=== PATIENT | male | born 1970 | race Caucasian/White ===

== ENCOUNTER → 2017-06-02 | Outpatient (CLI) | payer OTHER ==
[2017-06-02 18:01] LABS: ALT 31 U/L (21-72); AST 18 U/L (17-59); Alkaline Phosphatase 70 U/L (38-126); Anion Gap 10 mmol/L; Blood Urea Nitrogen 10 mg/dL (9-20); Carbon Dioxide 27 mmol/L (22-30); Chloride 102 mmol/L (98-107); Cholesterol 212 mg/dL (<200); Glucose 91 mg/dL (74-99); HDL Cholesterol 62 mg/dL (40-60); Non-African American GFR(MDRD) >60 (>60 ml/min/1.73 sqM); Potassium 4.1 mmol/L (3.5-5.1); Sodium 139 mmol/L (137-145); Total Bilirubin 0.4 mg/dL (0.2-1.3); Total Protein 6.8 g/dL (6.3-8.2)
[2017-06-02 18:24] LABS: Anisocytosis Slight; Basophils % (A) 1 %; CHCM 28.8; Eosinophils # (A) 0.2 k/uL (0-0.7); Eosinophils % (A) 4 %; HCT 36.6 % (39.0-53.0); HDW 2.93; HGB 10.2 gm/dL (13.0-17.5); Hypochromasia Marked; Luc # (Auto) 0.12; Luc % (Auto) 3; Lymphocytes # (A) 1.2 k/uL (1.0-4.8); Lymphocytes % (A) 26 %; MCH 21.4 pg (25.0-35.0); MCHC 27.9 g/dL (31.0-37.0); MCV 76.8 fL (80.0-100.0); Microcytosis Slight; Monocytes # (A) 0.4 k/uL (0-1.0); Monocytes % (A) 9 %; Neutrophils # (A) 2.7 k/uL (1.3-7.7); Neutrophils % (A) 58 %; RBC 4.77 m/uL (4.30-5.90); RDW 16.3 % (11.5-15.5); WBC 4.7 k/uL (3.8-10.6); WBC (Perox) 4.61
== END | disposition home or self-care (01) ==
LOC: LABWHC1 17:20
PROVIDERS: ATTEND Family Medicine
DX: Z00.00 Encounter for general adult medical examination without abnormal findings (principal)
CPT/HCPCS: 36415; 80053; 80061; 84443; 85025

== ENCOUNTER 2017-09-05 21:29 | Emergency (ER) | payer OTHER ==
--- NOTE | 2017-09-05 22:03 | XR ---
EXAMINATION TYPE: XR hand complete LT DATE OF EXAM: 09/05/2017 CLINICAL HISTORY: Laceration injury with pain TECHNIQUE: Frontal, lateral and oblique images of the left hand are obtained. COMPARISON: None. FINDINGS: There is no acute fracture/dislocation evident in the left hand. There is prominent osteop hyte from the third metacarpal head. There is mild spurring and joint space loss throughout the third finger. There is mild spurring first metacarpal phalangeal joint. The overlying soft tissue appears unremarkable. IMPRESSION: There is no acute fracture or dislocation in the left hand.
--- NOTE | 2017-09-05 22:05 | ED ---
Wound/Laceration HPI - General Chief Complaint: Wound/Laceration Stated Complaint: Hand Laceration Time Seen by Provider: 09/05/17 21:33 Source: patient, RN notes reviewed Mode of arrival: ambulatory Limitations: no limitations - History of Present Illness Initial Comments: This is a 47-year-old male who presents to the emergency department with chief complaint of left hand laceration. Patient states that approximately one hour prior to arrival he was using a metal scraper against adhesive. He slipped and lacerated the thenar eminence of his left hand. Patient was unable to get the bleeding under control. He states he is up-to-date with his tetanus vaccination. Denies any other injuries. Denies fever, chills, chest pain, shortness of breath, abdominal pain, nausea or vomiting, constipation or diarrhea, dysuria or hematuria, numbness or tingling, headache or vision changes. - Related Data Previous Rx's Medication Instructions Recorded Cephalexin [Keflex] 500 mg PO Q12HR #20 cap 09/05/17 Allergies Allergy/AdvReac Type Severity Reaction Status Date / Time No Known Allergies Allergy Verified 09/05/17 21:33 Review of Systems ROS Statement: Those systems with pertinent positive or pertinent negative responses have been documented in the HPI. ROS Other: All systems not noted in ROS Statement are negative. Past Medical History Past Medical History: No Reported History History of Any Multi-Drug Resistant Organisms: None Reported Past Surgical History: No Surgical Hx Reported Past Psychological History: No Psychological Hx Reported Smoking Status: Never smoker Past Alcohol Use History: Occasional Past Drug Use History: None Reported General Exam - General Exam Comments Initial Comments: General: Awake and alert, well-developed; in no apparent distress. HEENT: Head atraumatic, normocephalic. Pupils are equal, round and reactive to light. Extraocular movements intact. Oropharynx moist without erythema or exudate. Neck: Supple. Normal ROM. Cardiovascular: Regular rate and rhythm. No murmurs, rubs or gallops. Chest symmetrical. Respiratory: Lungs clear to auscultation bilaterally. No wheezes, rales or rhonchi. Normal respiratory effort with no use of accessory muscles. Musculoskeletal: Normal ROM of left hand. Sensation is intact. Radial pulses are 2+ equal and palpable bilaterally. There is approximately 3 cm linear laceration at left thenar eminence. Bleeding is active. Skin: [place], warm and dry without rashes or lesions. Neurological: Alert and oriented x3. CN II-XII grossly intact. Speech is fluent and answers are appropriate. No focal neuro deficits. Psychiatric: Normal mood and affect. No overt signs of depression or anxiety noted. Limitations: no limitations Course Vital Signs 09/05/17 21:30 Temperature 98.2 F Pulse Rate 89 Respiratory 18 Rate Blood Pressure 132/84 O2 Sat by Pulse 97 Oximetry Procedures - Laceration Laceration #1 Consent Obtained: verbal consent Indication: laceration Site: hand (left thenar eminence ) Size (cm): 3 Description: linear Depth: simple, single layer Anesthetic Used: lidocaine 1% Anesthesia Technique: local infiltration Amount (mls): 6 Pre-repair: wound explored, irrigated extensively, deep structures intact Type of Sutures: nylon Size of Sutures: 5-0 Number of Sutures: 5 Technique: simple, interrupted Patient Tolerated Procedure: well, no complications Medical Decision Making - Medical Decision Making This is a 47-year-old male who presents to the emergency department for evaluation of left hand laceration. X-ray revealed no bone involvement. 5 sutures were placed and patient tolerated well without complication. He states he is up-to-date with his tetanus vaccination. Patient will be discharged home with a prescription for Keflex. Recommended removal of sutures in 10-14 days. He is in agreement with plan and voices understanding. All questions were answered. - Radiology Data Radiology results: report reviewed Left hand x-ray impression: There is no acute fracture or dislocation left hand. Disposition Clinical Impression: Laceration of left hand Disposition: HOME SELF-CARE Condition: Good Instructions: Laceration (ED) Additional Instructions: Please have sutures removed in 10-14 days. Please keep dry for the next 24-48 hours. To clean, use only mild soap and water. Please take medications as prescribed. Please follow up with primary care provider within 1-2 days. Return to emergency department if symptoms should worsen or any concerns arise. Prescriptions: Cephalexin [Keflex] 500 mg PO Q12HR #20 cap Referrals: Dre Lester MD [Primary Care Provider] - 1-2 days Time of Disposition: 22:16
[2017-09-05 22:35] VITALS: BP 142/80; PULSE 72; RESP 16; TEMP 97.4
== END 2017-09-05 22:35 | disposition home or self-care (01) ==
LOC: EC 21:29
DX: S61.412A Laceration without foreign body of left hand, initial encounter (principal); W26.8XXA Contact with other sharp object(s), not elsewhere classified, initial encounter; Y93.89 Activity, other specified
CPT/HCPCS: 12002; 99283

== ENCOUNTER → 2022-12-08 | Outpatient (CLI) | payer OTHER ==
[2022-12-08 14:47] LABS: Partial Thromboplastin Time 24.7 sec (22.0-30.0); Prothrombin Time 10.2 sec (9.0-12.0)
[2022-12-08 20:34] LABS: Basophils # (A) 0.06 X 10*3/uL (0.00-0.10); Basophils % (A) 0.8 %; Eosinophils # (A) 0.25 X 10*3/uL (0.04-0.35); Eosinophils % (A) 3.4 %; HCT 44.1 % (39.6-50.0); HGB 13.9 g/dL (13.0-17.0); Immature Grans, Automated 0.4 %; Lymphocytes # (A) 1.51 X 10*3/uL (0.90-5.00); Lymphocytes % (A) 20.6 %; MCHC 31.5 g/dL (32.0-37.0); MCV 88.9 fL (80.0-97.0); Monocytes # (A) 0.55 X 10*3/uL (0.20-1.00); Monocytes % (A) 7.5 %; NRBC Per 100 WBC 0 /100 WBCS (0.0-0.0); Neutrophils # (A) 4.94 X 10*3/uL (1.80-7.70); Neutrophils % (A) 67.3 %; Platelet Count 226 X 10*3/uL (140-440); RBC 4.96 X 10*6/uL (4.40-5.60); RDW 15.5 % (11.5-14.5); WBC 7.34 X 10*3/uL (4.50-10.00)
[2022-12-08 22:18] LABS: Appearance,Urine Clear (Clear); Bilirubin,Urine Negative (Negative); Blood,Urine Negative (Negative); Color,Urine Yellow (Yellow); Ketones,Urine Negative (Negative); Nitrite,Urine Negative (Negative); PH, Urine 5.5 (5.0-8.0); Specific Gravity,Urine 1.006 (1.001-1.030); Urobilinogen,Urine 0.2 (0.2,1.0)
[2022-12-08 22:30] LABS: African American GFR (CKD) 116.1 (60.0-200.0); Albumin 4.5 g/dL (3.8-4.9); Albumin/Globulin Ratio 1.62 (1.60-3.17); BUN/Creat Ratio 12.51 Ratio (12.00-20.00); Calcium 7.3 mg/dL (8.7-10.3); Carbon Dioxide 25.9 mmol/L (20.0-27.5); Globulin 2.8 g/dL (1.6-3.3); Non-African American GFR(CKD) 100.2 (60.0-200.0); Potassium 4.2 mmol/L (3.5-5.5); Total Bilirubin 0.3 mg/dL (0.30-1.20); Total Protein 7.3 g/dL (6.2-8.2)
== END | disposition home or self-care (01) ==
LOC: LABPAT 12:48
PROVIDERS: ATTEND Orthopaedic Surgery
DX: Z01.818 Encounter for other preprocedural examination (principal); I45.19 Other right bundle-branch block; M16.11 Unilateral primary osteoarthritis, right hip; R94.31 Abnormal electrocardiogram [ECG] [EKG]
CPT/HCPCS: 80053; 81003; 85025; 85610; 85730; 87070; 93005

== ENCOUNTER → 2023-01-19 | Outpatient (CLI) | payer OTHER ==
[2023-01-19 14:37] LABS: Partial Thromboplastin Time 24.2 sec (22.0-30.0); Prothrombin Time 10.6 sec (9.0-12.0)
[2023-01-19 23:06] LABS: ALT 25 U/L (10-49); AST 22 U/L (14-35); Albumin 4.4 d/dL (3.8-4.9); Albumin/Globulin Ratio 1.69 Ratio (1.60-3.17); Alkaline Phosphatase 90 U/L (41-126); BUN/Creat Ratio 15.38 Ratio (12.00-20.00); Blood Urea Nitrogen 12.3 mg/dL (9.0-27.0); Calcium 7.5 mg/dL (8.7-10.3); Chloride 100 mmol/L (96-109); Globulin 2.6 d/dL (1.6-3.3); Glucose 112 mg/dL (70-110); Potassium 4.9 mmol/L (3.5-5.5); Sodium 138 mmol/L (135-145); Total Bilirubin 0.3 mg/dL (0.3-1.2)
[2023-01-20 02:01] LABS: Appearance,Urine Clear (Clear); Bilirubin,Urine Negative (Negative); Blood,Urine Negative (Negative); Color,Urine Yellow (Yellow); Ketones,Urine Negative (Negative); Nitrite,Urine Negative (Negative); PH, Urine 5.5; Urobilinogen,Urine 0.2 E.U./DL
[2023-01-20 02:32] LABS: HCT 42.5 % (39.6-50.0); HGB 14.2 d/dL (12.0-15.0); MCH 30.3 pg (27.0-32.0); MCHC 33.4 d/dL (32.0-37.0); MCV 90.8 FL (80.0-97.0); Mean Platelet Volume 11.2 FL (9.5-12.2); NRBC Per 100 WBC 0 X 10*3/uL (0.00-0.01); Platelet Count 222 X 10*3/uL (140-440); RBC 4.68 X 10*6/uL (4.40-5.60); RDW 13.6 % (11.5-14.5); WBC 5.54 X 10*3/uL (4.50-10.00)
== END | disposition home or self-care (01) ==
LOC: LABPAT 12:56
PROVIDERS: ATTEND Orthopaedic Surgery
DX: Z01.812 Encounter for preprocedural laboratory examination (principal); M16.11 Unilateral primary osteoarthritis, right hip
CPT/HCPCS: 36415; 80053; 81001; 81003; 85027; 85610; 85730

== ENCOUNTER 2023-01-26 13:12 | Observation (INO) | payer OTHER ==
[2023-01-23 09:20] VITALS: BMI 31.5
[~2023-01-26 13:12] MED LIST: ACETAMINOPHEN TAB 500 MG TAB PO PRN; DEXAMETHASONE SOD PHOSPHATE 4 MG/ML 1 ML VIAL IV ONE; LIDOCAINE 1% (10MG/ML) FOR IV START INTRADERMA PRN; MELOXICAM 7.5 MG TAB PO PRN; ONDANSETRON 4 MG/2 ML VIAL IVP ONE; ONDANSETRON 4 MG/2 ML VIAL IVP PRN; TRANEXAMIC 1,000 MG/100ML-NACL 1,000 MG in SALINE 1 100ML.BAG IVPB PRN
[2023-01-26] MEDS: LACTATED RINGERS 1,000 ML IV SCH ×3 (13:21→21:41)
[2023-01-26] MEDS ORDERED: fentaNYL (PF) 50 MCG/ML 2 ML AMP IVP ONE (13:51)
[2023-01-26] MEDS ORDERED: MIDAZOLAM 2 MG/2 ML VIAL IVP ONE ×2 (13:51)
[2023-01-26] MEDS ORDERED: ceFAZolin 1,000 MG in SODIUM CHLORIDE 0.9% 1,000 ML IRRIGATION ONE (15:06)
[2023-01-26] MEDS ORDERED: ROPIVACAINE 5 MG/ML 30 ML VIAL MISCELLANE ONE ×2 (15:06)
[2023-01-26] MEDS ORDERED: LACTATED RINGERS 1,000 ML IV ONE (15:30)
--- NOTE | 2023-01-26 16:27 | P.OP ---
Date of Procedure: 01/26/23 Procedure(s) Performed: PREOPERATIVE DIAGNOSIS: Right hip severe osteoarthritis POSTOPERATIVE DIAGNOSIS: Right hip severe osteoarthritis OPERATION: Right hip total replacement arthroplasty (uncemented implantation with ceramic on polyethylene articulation). ANESTHESIA: Spinal ESTIMATED BLOOD LOSS: 300 ml. TRACTOR ENGINE ASSEMBLER: Rody Hunt PA-C (assistance with: patient positioning, retraction, exposure, hemostasis, leg positioning, implantation, irrigation, closure, dressing) COMPLICATIONS: None apparent. COMPONENTS IMPLANTED: Jitendra continuum acetabular cup with cluster holes; continuum longevity 15 elevated liner, 32 mm id; Jitendra VerSys Fiber Metal stem; VerSys 32 mm femoral head with 0 mm neck length extension INDICATIONS: Ahmet is a 52 year old male with significant end-stage osteoarthritis involving the right hip and commensurate severe symptoms. He presents to the operating room today for total hip replacement. He also has osteoarthritis of the contralateral hip but of a milder degree. I have discussed the steps of the operation of right hip replacement as well as potential risks and complications as being inclusive of, but not limited to: Bleeding, infection, scarring, discomfort, or vessel and/or nerve damage, need for further surgery, loosening, dislocation, wear, osteolysis, limb length inequality, fracture, blood clot, pulmonary embolism, , persistent limp, and other risks. The patient is aware these risks and wishes to proceed with surgery and has signed a consent form. PROCEDURE: After appropriate consent was obtained, the patient was taken to the operating room and placed in supine position. Spinal anesthetic was administered and after confirmation of adequate anesthesia, the patient was placed into the lateral decubitus position with the right side up. Care was taken to make sure that all pressure points were adequately padded and he was stabilized to the table with a [place] hip positioner. The right hip was prepped and draped in the usual aseptic fashion using a combination of ChloraPrep and alcohol. [place] drape was used for the case and the patient received intravenous antibiotics prior to the incision. "Time out" was called, confirming patient identity, side, procedure, availability of implants and administration of antibiotics and tranexamic acid. The incision was created directly over the greater trochanter and carried slightly posteriorly for a posterior approach to the hip. The incision was then deepened down to subcutaneous tissue and fascia tory. Fascia tory was split in line with the incision and split proximally along the fibers of the gluteus aida. The underlying fibers of the muscle were teased apart using finger dissection and bleeding vessels were picked up and coagulated. Retractor was then placed posteriorly consisting of a blunt Herald. The short external rotators and capsule were exposed using good visualization of the attachment of the external rotators to the femur was established. The short external rotators and capsule were released using electrocautery from their femoral attachments. A hockey stick shaped incision was created in the capsule. Joint fluid was evacuated and the patient's hip was able to be dislocated fairly easily. The patient's femoral head was severely arthritic with eburnated bone present and a 360 degrees pro of osteophytes. The femoral neck cut was created approximately 1 cm superior to the lesser trochanter using a reciprocating saw. The femoral head and neck fragment was removed and attention was then directed to the acetabulum. An anterior acetabular retractor was applied followed by posterior retraction of the capsule with a Meyerding retractor. This afforded good visualization into the acetabular cavity. Soft tissue was removed and residual cartilage within the acetabular vault was removed using a curette. Labrum was removed using a long-handled knife. Attention was then directed to reaming. The size 49 reamer was used first, followed by increasing increments until the final size reamer was used. Please see the implantation sheet for exact sizes used for the components. Once the final reamer had been utilized to expand the socket it was noted that there was a good supportive bone around the acetabular socket and no further reaming needed to be performed. Note was made of three degenerative cysts in the acetabulum which were totally contained. Reamings of bone were placed in those cavities after reaming and irrigation and before implantation of the final acetabular component. The trial the same size as the last reamer used was then impacted into the acetabular vault and found to have good fit. The acetabular component, one size (2mm) greater than the trial was then called for. The cluster holes were placed posteriorly and the component was impacted in a position of approximately 40 degrees abduction and 20 degrees anteversion. This matched this patient's seminole anteversion and it was noted that the cup had excellent stability without need for additional screw fixation. Attention was then directed to the acetabular liner. The anteversion and abduction angle of the component was noted to be very good. A 15 elevated liner was used and locked into position with the elevation posterior superior. Osteophytes around the posterior and inferior aspect of the acetabulum were trimmed as necessary to prevent any impingement. These were large spurs in this individual which were removed with a combination of rongeur and curved osteotome. Attention was then directed back to the proximal femur. Retractors were placed around the proximal femur and box osteotome was used followed by canal finder and trochanteric reamer. Cylindrical reaming was performed. Progressive broaching was then performed starting with a #10 broach and progressing final size, in a position of 15 degrees anteversion. Habematolel anteversion was within 5 degrees of stem position. The final size broach had excellent fit and fill of the patient's metaphysis and diaphysis. Trial reduction was then performed starting with size 32 mm femoral head and various neck combination of stability, limb length equality, and soft tissue tension. Trial components were then removed. The canal was lavaged and the final size femoral stem component was impacted into position. The implant fit very well and had excellent stability. The femoral head was then impacted onto the Peck taper. Blood and debris were removed from the acetabular component and the hip was then reduced and checked for stability, limb length and soft tissue tension. These parameters found to be satisfactory, the wound was then thoroughly irrigated with normal saline. Final hemostasis was obtained using electrocautery and IV tranexamic acid, 1 g given at the time of prepping and draping, and another 1 g given at the time of closure. Closure of the capsule was performed meticulously using #3 Vicryl suture. Four [id number] sutures were placed in the posterior capsule along with repair of the external rotators. The fascia tory was then repaired using combination of #3 Vicryl suture in interrupted fashion and strata fix and running fashion. 2-0 Vicryl suture was used for the subcutaneous tissues and 3-0 strata fix for the skin. Dermabond was then applied, followed by optical foam dressing. The patient tolerated the procedure well. There were no complications and the wound bed was dry and there was no need for drain placement. Sterile dressing was then applied and the patient was carefully removed from the operating room table, placed on the stretcher and was taken to the recovery room in stable condition. Sponge and needle counts were correct.
--- NOTE | 2023-01-26 16:28 | P.ANPRN ---
Procedure Note - Anesthesia - Nerve Block Performed Right Shaq Time Out Performed: Yes (13:49) Date of Procedure: 01/26/23 Procedure Start Time: :49 Procedure Stop Time: 13:54 Location of Patient: PreOp Indication: Acute Post-Operative Pain, Requested by Surgeon (Dr Garcia) Sedation Type: Sedate with meaningful contact maintained Preparation: Sterile Prep Position: Supine Catheter: None Needle Types: Pajunk Needle Gauge: 21 Ultrasound used to visualize needle placement: Yes Ultrasound used to observe medication spread: Yes Injectate: 0.5% Ropivacaine (see comment for volume) (20cc +5cc PF Normal saline) Blood Aspirated: No Pain Paresthesia on Injection Noted: No Resistance on Injection: Normal Image Stored and Saved: Yes Events: Uneventful and Well Tolerated
[2023-01-26] MEDS ORDERED: NALOXONE 0.4 MG/ML 1 ML VIAL IV PRN (16:55)
[2023-01-26] MEDS: HYDROmorphone 0.5 MG/0.5 ML SYRINGE IVP PRN ×3 (17:00→17:37)
[2023-01-26] MEDS ORDERED: HYDROmorphone 0.5 MG/0.5 ML SYRINGE IVP PRN ×2 (17:03)
[2023-01-26] MEDS ORDERED: HYDROcodone/APAP 5-325MG 1 EACH TAB PO PRN (17:03)
[2023-01-26] MEDS ORDERED: ONDANSETRON 4 MG/2 ML VIAL IVP PRN (17:03)
[2023-01-26] MEDS ORDERED: MAGNESIUM HYDROXIDE 2,400 MG/30 ML CUP PO PRN (17:03)
--- NOTE | 2023-01-26 18:07 | XR ---
EXAMINATION TYPE: XR Hip Limited RT DATE OF EXAM: 01/26/2023 5:36 PM INDICATION: Patient age:Male; 52 years old; Reason for study: Status post hip surgery, assess surgical alignment; COMPARISON: None. TECHNIQUE: The right hip was examined in the frontal projections FINDINGS: Post arthroplasty changes, hardware is intact, alignment is appropriate. No evidence of fra cture. Postoperative changes of the soft tissues with subcutaneous gas. No evidence of any acute osse ous pathology or joint dislocation. IMPRESSION: Hip arthroplasty with hardware intact and in appropriate alignment. No acute fracture.
[2023-01-26] MEDS ORDERED: HYDROcodone/APAP 5-325MG 1 EACH TAB PO ONE (19:06)
[2023-01-26] MEDS: HYDROmorphone 1 MG/ML 1 ML SYRINGE IVP PRN (20:40)
[2023-01-26] MEDS: ASPIRIN 81 MG PO SCH (20:40)
[2023-01-26] MEDS ORDERED: SENNOSIDES-DOCUSATE SODIUM 1 EACH TAB PO SCH (21:00)
[2023-01-26] MEDS ORDERED: TEMAZEPAM 15 MG CAP PO PRN (23:00)
[2023-01-27] MEDS: HYDROmorphone 1 MG/ML 1 ML SYRINGE IVP PRN ×4 (00:07→10:20)
[2023-01-27] MEDS: HYDROcodone/APAP 5-325MG 1 EACH TAB PO PRN ×2 (02:06→08:56)
[2023-01-27] MEDS: LACTATED RINGERS 1,000 ML IV SCH ×3 (06:18→08:54)
[2023-01-27] MEDS ORDERED: INDOMETHACIN 25 MG CAP PO ONE (08:00)
[2023-01-27 08:19] VITALS: PULSE 69
[2023-01-27] MEDS: ASPIRIN 81 MG PO SCH (08:52)
[2023-01-27] MEDS ORDERED: MELOXICAM 7.5 MG TAB PO SCH (09:00)
[2023-01-27] MEDS ORDERED: PANTOPRAZOLE 40 MG/10 ML VIAL IVP SCH (10:45)
[2023-01-27] MEDS ORDERED: HYDROcodone/APAP 7.5-325MG 1 EACH TAB PO PRN ×2 (11:33)
--- NOTE | 2023-01-27 12:01 | P.DS ---
Providers Date of admission: 01/26/23 16:47 Expected date of discharge: 01/27/23 Attending physician: Wil Garcia Consults: 01/26/23 17:03 Consult Physician Routine Consulting Provider: Dre Lester Consult Reason/Comments: Medical management Do you want consulting provider notified?: Yes Primary care physician: Dre Lester - Discharge Diagnosis(es) (1) Osteoarthritis of right hip Current Visit: Yes Status: Acute (2) S/P total hip arthroplasty Current Visit: Yes Status: Acute Hospital Course: This is a 52-year-old male with known history of degenerative arthritis of the right hip. The patient presented for evaluation as an outpatient. After discussion and consideration patient elects to proceed with total hip arthroplasty. The patient is seen preoperatively by Dr. Garcia and medically cleared for surgery by their primary care physician. Patient is admitted to [facility] on 01/26/2023 for total hip arthroplasty. The procedure is performed without complication or sequelae. The patient is doing well postoperatively. Labs and vital signs are stable on day of discharge. On day of discharge patient's hip incision is healing well. There is minimal erythema. There is no drainage noted at this time. There is minimal soft tissue swelling to the hip and thigh. Patient has full foot and ankle motion without difficulty or pain. Calf is soft and nontender to palpation. Neurovascular status to the right lower extremity is intact. Patient is discharged home in good condition. Please see [facility] rec for accurate list of home medications. Plan - Discharge Summary Discharge Rx Participant: No New Discharge Prescriptions: New Aspirin [Adult Low Dose Aspirin EC] 81 mg PO BID #1 tab HYDROcodone/APAP 7.5-325MG [[place] 7.5-325] 1 - 2 tab PO Q6HR PRN #32 tab PRN Reason: Pain Sennosides-Docusate Sodium [Senokot-S] 1 tab PO BID #60 tablet Indomethacin [Indocin ER] 75 mg PO DAILY #30 cap Ondansetron Odt [Zofran Odt] 4 mg PO Q8HR PRN #14 tab PRN Reason: Nausea hydrOXYzine pamoate [Vistaril] 25 mg PO Q6H PRN #30 capsule PRN Reason: Pain No Action Ibuprofen [Motrin Ib] 200 mg PO Q8H Discharge Medication List Ibuprofen [Motrin Ib] 200 mg PO Q8H 12/10/22 [History] Aspirin [Adult Low Dose Aspirin EC] 81 mg PO BID #1 tab 01/26/23 [Rx] HYDROcodone/APAP 7.5-325MG [[place] 7.5-325] 1 - 2 tab PO Q6HR PRN #32 tab 01/26/23 [Rx] Indomethacin [Indocin ER] 75 mg PO DAILY #30 cap 01/26/23 [Rx] Ondansetron Odt [Zofran Odt] 4 mg PO Q8HR PRN #14 tab 01/26/23 [Rx] Sennosides-Docusate Sodium [Senokot-S] 1 tab PO BID #60 tablet 01/26/23 [Rx] hydrOXYzine pamoate [Vistaril] 25 mg PO Q6H PRN #30 capsule 01/27/23 [Rx] Follow up Appointment(s)/Referral(s): Rody Hunt PAC [PHYSICIAN GARAGE MECHANIC] - 02/04/23 1:45 pm [facility] [NON-STAFF] - As Needed Dre Lester MD [Primary Care Provider] - 1 Week Activity/Diet/Wound Care/Special Instructions: TTWB with walker RLE. May shower 48 hr post op. Remove Optifoam dressing 7 days post op. Discharge Disposition: HOME WITH HOME HEALTH SERVICES
--- NOTE | 2023-01-27 12:10 | P.CONS ---
History of Present Illness - Reason for Consult Consult date: 01/27/23 Medical management Requesting physician: Wil Garcia - Chief Complaint Osteoarthritis right hip, status post surgical repair - History of Present Illness This is a pleasant 60-year-old gentleman with past medical history significant for obesity and multiple other medical issues presented to the ER with significant osteoarthritis of right hip, failed conservative treatments, status post elective right hip total replacement arthroplasty. Tolerated procedure well. Pain controlled. Denies chest pain, palpitations or shortness of breath .Vital signs stable, maintaining O2 sats in the 90s on room air. Passing flatus. Past Medical History Past Medical History: No Reported History History of Any Multi-Drug Resistant Organisms: None Reported Past Surgical History: No Surgical Hx Reported Additional Past Surgical History / Comment(s): fx hand repair as a teen Past Anesthesia/Blood Transfusion Reactions: No Reported Reaction Additional Past Anesthesia/Blood Transfusion Reaction / Comm: no blood tx/hx Past Psychological History: No Psychological Hx Reported Smoking Status: Never smoker Past Alcohol Use History: Occasional Additional Past Alcohol Use History / Comment(s): weekends only Past Drug Use History: None Reported - Past Family History Mother Family Medical History: No Reported History Medications and Allergies Home Medications Medication Instructions Recorded Confirmed Type Ibuprofen [Motrin Ib] 200 mg PO Q8H 12/10/22 01/26/23 History Aspirin [Adult Low Dose Aspirin EC] 81 mg PO BID #1 tab 01/26/23 Rx HYDROcodone/APAP 7.5-325MG [[place] 1 - 2 tab PO Q6HR PRN #32 tab 01/26/23 Rx 7.5-325] Indomethacin [Indocin ER] 75 mg PO DAILY #30 cap 01/26/23 Rx Ondansetron Odt [Zofran Odt] 4 mg PO Q8HR PRN #14 tab 01/26/23 Rx Sennosides-Docusate Sodium 1 tab PO BID #60 tablet 01/26/23 Rx [Senokot-S] hydrOXYzine pamoate [Vistaril] 25 mg PO Q6H PRN #30 capsule 01/27/23 Rx Allergies Allergy/AdvReac Type Severity Reaction Status Date / Time No Known Allergies Allergy Verified 01/26/23 13:25 Physical Exam Vitals: Vital Signs Temp Pulse Resp BP Pulse Ox 01/27/23 06:45 97.7 F 69 16 131/84 95 06/20/23 01:27 97.5 F L 73 18 122/78 96 01/26/23 21:35 74 115/77 92 L 01/26/23 21:10 78 117/85 91 L 01/26/23 20:05 97.9 F 80 18 130/81 94 L 01/26/23 19:03 74 16 155/82 96 01/26/23 18:33 69 16 125/67 92 L 01/26/23 18:03 69 16 118/68 92 L 01/26/23 17:47 65 16 131/61 91 L 01/26/23 17:32 68 16 122/78 96 01/26/23 17:17 67 16 119/67 96 01/26/23 17:02 66 16 111/73 91 L 01/26/23 16:47 97 F L 75 16 132/80 96 01/26/23 13:56 74 16 139/84 96 01/26/23 13:29 98 F 82 164/91 95 Intake and Output 01/26/23 01/27/23 01/27/23 22:59 06:59 14:59 Intake Total 601 2550 Output Total 300 500 Balance 301 2050 Intake: IV 601 Intake, IV Titration 1300 Amount Lactated Ringers 1,000 ml 1200 @ 100 mls/hr IV .Q10H [facility] Rx#:[id number] ceFAZolin 2 gm In Sodium 100 Chloride 0.9% 50 ml @ 100 mls/hr IVPB Q8H [facility] Rx#: [id number] Oral 1250 Output: Urine 500 Estimated Blood Loss 300 Other: Voiding Method Toilet Urinal # Voids 1 Weight 99.7 kg PHYSICAL EXAM: VITAL SIGNS: [As above] GENERAL: Sitting up in bed, no acute distress HEENT: Atraumatic, normocephalic, Conjunctivae normal. eyes normal. NECK: Supple, No JVD. No thyroid enlargement. No LNs CARDIOVASCULAR: S1, S2 regular.. No murmur RESPIRATION: Nonlabored, Breath sounds diminished in the bases. No rhonchi or crackles. No bronchial breathing. ABDOMEN: Soft, nondistended, nontender . No guarding. no masses palpable. No ascites, No hepatosplenomegaly.Bowel sounds heard. EXTREMITIES: Right hip dressing clean dry and intact, minimal edema, no calf tenderness, positive DP pulses. PSYCHIATRY: Alert and oriented X3, mood and affect normal. NERVOUS SYSTEM: Cranial N 2-12 grossly normal. No focal deficits. Strength and sensation grossly intact.. Skin: Warm and dry, no rash Assessment and Plan Assessment: Right hip osteoarthritis, status post right hip total replacement arthroplasty Obesity, BMI 31.5 Plan: Continue on current medication regime, monitoring and symptomatically treatment. Pain management, DVT prophylaxis as per primary. PPI ordered for GI prophylaxis. Aggressive pulmonary toileting with incentive spirometer reinforced. PT/OT. Thank you for the consult. The impression and plan of care has been dictated as directed. : I performed a history and examination of this patient, discussed the same with the dictator. I agree with the dictator's note ,documented as a scribe. Any additional findings or plans will be noted.
[2023-01-27 12:35] VITALS: BP 122/79; RESP 14; TEMP 97.9
[2023-01-27 14:37] LABS: Basophils # (A) 0.03 X 10*3/uL (0.00-0.10); Basophils % (A) 0.4 %; Eosinophils # (A) 0.03 X 10*3/uL (0.04-0.35); Eosinophils % (A) 0.4 %; HCT 39.1 % (39.6-50.0); HGB 12.3 d/dL (12.0-15.0); Lymphocytes # (A) 1.21 X 10*3/uL (0.90-5.00); Lymphocytes % (A) 14.2 %; MCH 28.6 pg (27.0-32.0); MCHC 31.5 d/dL (32.0-37.0); MCV 90.9 FL (80.0-97.0); Mean Platelet Volume 11.3 FL (9.5-12.2); Monocytes % (A) 10.6 %; NRBC Per 100 WBC 0 X 10*3/uL (0.00-0.01); Neutrophils # (A) 6.29 X 10*3/uL (1.80-7.70); Neutrophils % (A) 73.9 %; Platelet Count 188 X 10*3/uL (140-440); RDW 13.2 % (11.5-14.5)
== END 2023-01-27 13:48 | disposition home health service (06) ==
LOC: OR 13:12 → 4SSUR 16:47
PROVIDERS: ADMIT Orthopaedic Surgery; ATTEND Orthopaedic Surgery
DX: M16.11 Unilateral primary osteoarthritis, right hip (principal); M25.751 Osteophyte, right hip; G89.18 Other acute postprocedural pain; E66.9 Obesity, unspecified; Z68.31 Body mass index [BMI] 31.0-31.9, adult; Z79.82 Long term (current) use of aspirin; Z79.899 Other long term (current) drug therapy
CPT/HCPCS: 97161; 97166; 86900; 86901; 85025; 86850; 73501; 27130; 64447; G0378 ×2; J2250; J1100; J0690 ×3; J2405; J3010; J1170 ×3; C9113

== ENCOUNTER → 2024-05-30 | Outpatient (CLI) | payer OTHER ==
[2024-05-30 17:22] LABS: Partial Thromboplastin Time 24.5 sec (22.0-30.0); Prothrombin Time 10.9 sec (10.0-12.5)
[2024-05-31 02:23] LABS: HCT 44.9 % (39.6-50.0); HGB 14.7 g/dL (13.0-17.0); MCH 28.9 pg (27.0-32.0); MCHC 32.7 g/dL (32.0-37.0); MCV 88.2 FL (80.0-97.0); Mean Platelet Volume 11.2 FL (9.5-12.2); NRBC Per 100 WBC 0 X 10*3/uL (0.00-0.01); Platelet Count 257 X 10*3/uL (140-440); RBC 5.09 X 10*6/uL (4.40-5.60); RDW 13.9 % (11.5-14.5)
[2024-05-31 02:40] LABS: Blood Urea Nitrogen 18.1 mg/dL (9.0-27.0); Glucose 82 mg/dL (70-110)
[2024-05-31 02:41] LABS: ALT 23 U/L (10-49); AST 24 U/L (14-35); Albumin 4.3 g/dL (3.8-4.9); Albumin/Globulin Ratio 1.59 Ratio (1.60-3.17); Alkaline Phosphatase 75 U/L (41-126); BUN/Creat Ratio 25.86 Ratio (12.00-20.00); Calcium 7.3 mg/dL (8.7-10.3); Carbon Dioxide 23.6 mmol/L (21.6-31.8); Chloride 102 mmol/L (96-109); Globulin 2.7 g/dL (1.6-3.3); Potassium 4.6 mmol/L (3.5-5.5); Sodium 139 mmol/L (135-145); Total Bilirubin 0.4 mg/dL (0.3-1.2)
== END | disposition home or self-care (01) ==
LOC: LABPAT 16:01
PROVIDERS: ATTEND Orthopaedic Surgery
CPT/HCPCS: 80053; 85027; 85610; 85730; 86850; 86900; 86901; 87070; 93005

== ENCOUNTER 2024-06-07 09:31 | Inpatient (IN) | payer OTHER ==
[~2024-06-07 09:31] MED LIST changes: -ACETAMINOPHEN TAB 500 MG TAB PO PRN; -DEXAMETHASONE SOD PHOSPHATE 4 MG/ML 1 ML VIAL IV ONE; -MELOXICAM 7.5 MG TAB PO PRN; -ONDANSETRON 4 MG/2 ML VIAL IVP ONE; -ONDANSETRON 4 MG/2 ML VIAL IVP PRN
[2024-06-07] MEDS: ONDANSETRON 4 MG/2 ML VIAL IVP ONE (10:25)
[2024-06-07] MEDS: DEXAMETHASONE SOD PHOSPHATE 4 MG/ML 1 ML VIAL IV ONE (10:25)
[2024-06-07] MEDS: GABAPENTIN 300 MG CAP PO PRN (10:25)
[2024-06-07] MEDS: MELOXICAM 7.5 MG TAB PO PRN (10:25)
[2024-06-07] MEDS: ACETAMINOPHEN TAB 500 MG TAB PO PRN (10:25)
[2024-06-07] MEDS: fentaNYL (PF) 50 MCG/ML 2 ML AMP IVP PRN (10:39)
[2024-06-07] MEDS: IV FLUID CONTINUATION 1,000 ML IV ONE (10:39)
[2024-06-07] MEDS: MIDAZOLAM 2 MG/2 ML VIAL IV ONE (10:39)
[2024-06-07] MEDS ORDERED: fentaNYL (PF) 50 MCG/ML 2 ML AMP ONE (11:11)
[2024-06-07] MEDS ORDERED: MIDAZOLAM 2 MG/2 ML VIAL ONE (11:11)
[2024-06-07] MEDS ORDERED: GLYCOPYRROLATE 0.2 MG/ML 2 ML VIAL ONE (11:11)
[2024-06-07] MEDS ORDERED: KETAMINE HCL IN 0.9 % NACL 50 MG/5 ML SYRINGE ONE (11:11)
[2024-06-07] MEDS ORDERED: SODIUM CHLORIDE 0.9% (PF) 10 ML VIAL ONE (11:11)
[2024-06-07] MEDS ORDERED: TRANEXAMIC 1,000 MG/100ML-NACL PREMIX BAG ONE (11:11)
[2024-06-07] MEDS ORDERED: PROPOFOL 10 MG/ML 20 ML VIAL IV ONE (11:11)
[2024-06-07] MEDS ORDERED: ROPIVACAINE 5 MG/ML 30 ML VIAL ONE (11:11)
[2024-06-07] MEDS: ceFAZolin 1,000 MG in SODIUM CHLORIDE 0.9% 1,000 ML IRRIGATION ONE (11:15)
[2024-06-07] MEDS: ROPIVACAINE 5 MG/ML 30 ML VIAL MISCELLANE ONE ×2 (11:48→12:31)
[2024-06-07] MEDS: LACTATED RINGERS 1,000 ML IV ONE (12:00)
--- NOTE | 2024-06-07 12:32 | P.OP ---
Date of Procedure: 06/07/24 Preoperative Diagnosis: Severe osteoarthritis left hip Postoperative Diagnosis: Severe osteoarthritis left hip Procedure(s) Performed: Left total hip arthroplasty with a direct anterior approach Implants: [employer] Polarstem standard size 3 [employer] R3, 3 hole hemispherical acetabular shell, 54 mm [employer] Reflection 6.5 mm cancellus screws, 25 mm 2 [employer] R3, XLPE 20 acetabular liner [employer]hew Oxinium femoral head 36 mm, +0 All components were press-fit. The articulation is Oxinium on polyethylene. Anesthesia: spinal Surgeon: Capo Dodge Farmworker Cranberry #1: Estelita Marcial Estimated Blood Loss (ml): 200 Pathology: none sent Condition: stable Disposition: PACU Indications for Procedure: After failure of conservative treatment we discussed the surgical and nonsurgical treatment options at length. Patient wishes to proceed with a total hip arthroplasty with a direct anterior approach. Complications specific to this procedure were discussed at length, including but not limited to infection, leg length discrepancy, dislocation, nerve injury, and fracture. Covid-19 was also discussed at length with the patient, and they are aware of the current policies and procedures. The patient was given the option of delaying surgery, but they elect to proceed knowing these risks. Patient is aware of all these complications and informed consent was obtained Operative Findings: The operative findings are consistent with severe osteoarthritis of the left hip Description of Procedure: The patient was seen and evaluated in the preoperative area and the consent was reviewed. The operative site was marked with a skin marker. The patient verified the procedure and operative site. A MICHELE block was placed by anesthesi a in the preoperative area. The patient was then brought to the operating room and given preoperative antibiotics intravenously. 1 g of Tranexamic acid was also given intravenously. A spinal anesthetic was administered by the anesthesia department. The patient was then placed on the [place] table with the bony prominences well-padded. The hip area was then prepped with a ChloraPrep solution and draped in the usual sterile fashion. A universal timeout was then performed, which confirmed the patient's name, surgical site, ALLERGIES, and procedure being performed on the consent. Next the incision site was located at 1 cm distal and 4 cm lateral to the anterior superior iliac spine. The skin and subcutaneous tissues were sharply incised. Incision was carefully dissected down to the fascia overlying the tensor fascia tory muscle. This fascia was then incised in line with the muscle fibers. Care was taken to stay laterally in order to avoid injuring the lateral femoral cutaneous nerve. Next, using blunt finger dissection, the tensor fascia tory muscle was dissected off its investing fascia. The muscle was then carefully retracted laterally with a cobra retractor over the lateral neck of the femur. Next, the circumflex vessels were identified and cauterized using the Aquamantis device. The anterior hip capsule was then exposed. The capsule was then opened and an inverted T fashion. The retractors were then placed intracapsularly. The retractors were maintained intracapsular throughout the procedure. The proximal femur was then visualized. Fluoroscopic x-rays were then taken in order to evaluate the preoperative leg lengths. A small amount of traction was placed on the leg. The femoral neck was then osteotomized at the appropriate level above the lesser trochanter. A small wedge of bone was then removed from the remaining femoral head. Next, using a corkscrew the femoral head was removed from the acetabulum. On gross visual inspection, the femoral head had complete loss of articular cartilage and multiple periarticular osteophytes. The femoral head was then measured. Attention was then turned to the acetabulum. The acetabulum was exposed and any remaining labrum was excised. Sequential reaming of the acetabulum was performed using fluoroscopic guidance until there was a good bed of bleeding cancellus bone. When the appropriate size was alli ched, a trial was then placed. The position and fit of the trial was checked with fluoroscopy. The trial was then removed. Then, using fluoroscopic guidance, the final implant was impacted at 20 of anteversion and 40 of abduction, and fully seated in the acetabulum. 2 screws were then placed in the acetabulum. Again fluoroscopy was used to check position of the screws. Next, the liner was then impacted, with a 20 elevated liner located in the anterior superior quadrant. Component locking was confirmed. Attention was then directed to the femur. With the aid of the [place] table, the femur was externally rotated to approximately 130, extended, and adducted under the opposite leg. A side hook was then placed under the proximal femur, and the side hook elevator was used to elevate the proximal femur while releasing the capsule. Retractors were then placed. A capsular release was performed, as well as a release of the conjoined tendon, which afforded excellent visualization of the proximal femur. Next, a box osteotome was used to lateralize the proximal femur. A associate material handler was then used to locate the femoral canal. Sequential broaching was then performed with appropriate size which afforded excellent fixation in the proximal femur. A trial was then placed with appropriate head and neck, and the hip was gently reduced with the aid of the [place] table. Fluoroscopy was then used to check position of the components, as well as to evaluate the leg lengths and offset. The leg lengths and offset were measured as closely as possible to ensure stability of the hip. The hip was then gently dislocated and the trials were then removed. Final implants were then impacted and the hip was again reduced. Final fluoroscopic x-rays confirmed that the components were in anatomic position. The leg lengths and offset were measured and were found to coincide with the trial measurements. The hip was also taken through range of motion, and found to be stable. The hip was then copiously irrigated with antibiotic solution with pulsatile lavage. The hip was then irrigated with Irrisept solution. The soft tissues were then injected with a ropivacaine solution. A second dose of 1 g of Tranexamic acid was also given intravenously. The fascia was then closed with 2-0 strata fix suture. The subcutaneous tissue was closed with 3-0 Vicryl. The subcuticular tissue was closed with 3-0 strata fix suture. The skin was then closed with Exofin skin glue. After the glue and dried, and Optifoam silver impregnated dressing was applied. The patient was then transferred to the recovery room in stable condition. The surgeon assistant YANNI Jin was required due to the complexity of surgery, and the need for skilled surgical instrument mechanic for positioning, draping, exposure, retraction, and closure of the wound.
--- NOTE | 2024-06-07 12:42 | XR ---
Intraoperative/procedural fluoroscopic services were provided for left total hip arthroplasty. Total fluoroscopy time is 40 seconds with a total of 5 submitted images to PACS. Total DAP 3.1482 Gycm2. P fatimah see the operative note for further details. [facility], , 06/07/2024 12:40 PM
[2024-06-07] MEDS ORDERED: NALOXONE 0.4 MG/ML 1 ML VIAL IV PRN (13:04)
[2024-06-07] MEDS ORDERED: HYDROmorphone 0.5 MG/0.5 ML SYRINGE IVP PRN ×2 (13:04)
[2024-06-07] MEDS ORDERED: ONDANSETRON 4 MG/2 ML VIAL IVP PRN (13:04)
[2024-06-07] MEDS ORDERED: HYDROcodone/APAP 7.5-325MG 1 EACH TAB PO PRN (13:06)
--- NOTE | 2024-06-07 13:35 | XR ---
EXAMINATION TYPE: XR Hip Limited LT DATE OF EXAM: 06/07/2024 1:29 PM INDICATION: Patient age:Male; 54 years old; Reason for study: Status post hip surgery, assess surgical alignment; PHH. COMPARISON: Left hip fluoroscopic images 06/07/2024 TECHNIQUE: The left hip was examined in single frontal projection. FINDINGS: Postsurgical changes from left total hip arthroplasty. Hardware appears intact with appropr iate position. No acute fracture or dislocation. IMPRESSION: Postsurgical changes from left total hip arthroplasty. Hardware appears intact with appropriate posit ion. [facility], , 06/07/2024 1:32 PM
[2024-06-07] MEDS: HYDROmorphone 0.5 MG/0.5 ML SYRINGE IVP PRN (14:06)
--- NOTE | 2024-06-07 14:35 | P.ANPRN ---
Procedure Note - Anesthesia - Nerve Block Performed Left Shaq Single Time Out Performed: Yes (2045) Date of Procedure: 06/07/24 Procedure Start Time: 10:51 Procedure Stop Time: 10:55 Location of Patient: PreOp Indication: Acute Post-Operative Pain, Requested by Surgeon Specifically requested for management of pain by DrRosa Maria: Capo Dodge Sedation Type: Sedate with meaningful contact maintained Preparation: Sterile Prep Position: Supine Catheter: None Needle Types: Pajunk Needle Gauge: 21 Ultrasound used to visualize needle placement: Yes Ultrasound used to observe medication spread: Yes Injectate: 0.5% Ropivacaine (see comment for volume) (30cc) Blood Aspirated: No Pain Paresthesia on Injection Noted: No Resistance on Injection: Normal Image Stored and Saved: Yes Events: Uneventful and Well Tolerated
[2024-06-07] MEDS: LACTATED RINGERS 1,000 ML IV SCH (14:43)
[2024-06-07] MEDS: droPERidol 5 MG/2 ML VIAL IVP ONE (14:43)
[2024-06-07] MEDS: SODIUM CHLORIDE 0.9% 1,000 ML IV SCH (14:44)
[2024-06-07] MEDS: HYDROmorphone 2 MG/ML 1 ML SYRINGE IVP PRN (14:56)
[2024-06-07 17:14] LABS: Glucose,Whole Blood 212 mg/dL (70-110)
[2024-06-07] MEDS: DEXTROSE 5% IN WATER 100 ML with AMIODARONE 150 MG IV ONE (17:34)
[2024-06-07] MEDS: AMIODARONE 360 MG in DEXTROSE 5% IN WATER 200 ML IV ONE (17:34)
[2024-06-07] MEDS: SENNOSIDES-DOCUSATE SODIUM 1 EACH TAB PO SCH (20:48)
[2024-06-07] MEDS: ASPIRIN 325 MG TAB PO SCH (20:48)
[2024-06-07] MEDS: traZODone HCL 50 MG TAB PO PRN (22:06)
[2024-06-07] MEDS: AMIODARONE 450 MG in DEXTROSE 5% IN WATER 250 ML IV SCH (23:30)
--- NOTE | 2024-06-08 07:08 | P.PN ---
Subjective Progress Note Date: 06/08/24 This is a 54-year-old male who is status post left total hip arthroplasty. This is postoperative day #1 And patient is seen and evaluated at bedside today. Patient states that his pain is well-controlled and he has been walking to the bathroom and back. Patient states that he had an episode of SVT last night. Patient states that this is not new for him and he is being followed by cardiology. Objective - Vital Signs Vital signs: Vital Signs Temp 98.3 F 06/07/24 20:45 Pulse 68 06/08/24 04:40 Resp 17 06/08/24 04:40 BP 108/73 06/08/24 04:40 Pulse Ox 97 06/08/24 04:40 FiO2 Intake & Output 06/07/24 06/08/24 06/08/24 18:59 06:59 18:59 Intake Total 851 Output Total 350 Balance 501 Weight 102 kg 104.1 kg Intake: IV 851 Output: Urine 150 Estimated Blood Loss 200 Other: Voiding Method Toilet - Exam Vital signs are stable. Patient is in no acute distress and is alert and oriented 3. Calf is soft and nontender to palpation. Dressing is clean, dry, and intact. Patient has full foot and ankle motion without pain or difficulty. Sensation intact. Neurovascular status and circulatory status are intact. - Labs Labs: Abnormal Lab Results - Last 24 Hours (Table) 06/07/24 Range/Units 17:14 POC Glucose (mg/dL) 212 H (70-110) mg/dL Assessment and Plan (1) Osteoarthritis of left hip Current Visit: Yes Status: Acute Code(s): M16.12 - UNILATERAL PRIMARY OSTEOARTHRITIS, LEFT HIP SNOMED Code(s): 041017671828079 (2) S/P total hip arthroplasty Current Visit: No Status: Acute Code(s): Z96.649 - PRESENCE OF UNSPECIFIED ARTIFICIAL HIP JOINT SNOMED Code(s): 825792309543 Plan: Continue routine postop care and pain control. Continue anticoagulation with aspirin. Weightbearing as tolerated with a walker. Leave dressing in place for 7 days. Appreciate input from internal medicine. Anticipate discharge home with homecare later today if cleared by internal medicine and cardiology.
[2024-06-08 07:46] LABS: Basophils % (A) 0 %; Eosinophils # (A) 0.1 k/uL (0-0.7); Eosinophils % (A) 1 %; HCT 37.2 % (39.0-53.0); HGB 11.8 gm/dL (13.0-17.5); Lymphocytes # (A) 1.2 k/uL (1.0-4.8); Lymphocytes % (A) 20 %; MCH 29.2 pg (25.0-35.0); MCHC 31.7 g/dL (31.0-37.0); Mean Platelet Volume 8.8; Monocytes # (A) 0.5 k/uL (0-1.0); Monocytes % (A) 9 %; Neutrophils % (A) 69 %; Platelet Count 161 k/uL (150-450); RBC 4.05 m/uL (4.30-5.90); RDW 13.6 % (11.5-15.5); WBC 5.8 k/uL (3.8-10.6)
[2024-06-08] MEDS ORDERED: MELOXICAM 7.5 MG TAB PO SCH (09:00)
[2024-06-08] MEDS: METOPROLOL TARTRATE 25 MG TAB PO SCH (10:02)
[2024-06-08 10:36] LABS: Glucose 104 mg/dL (74-99)
--- NOTE | 2024-06-08 10:36 | P.CRDCN ---
History of Present Illness History of present illness: HISTORY OF PRESENT ILLNESS: This is a 54-year-old male with a past medical history significant for osteoarthritis and SVT. Patient does not follow with a carbon setter. We have been asked to see the patient in consultation for SVT. Patient examined at the bedside. Status post left total hip arthroplasty. Postop day #1. Postoperatively, the patient went into SVT. He was given adenosine x 2 with conversion to sinus mechanism. He reports having palpitations at that time. He is maintaining sinus mechanism this morning. He does report having a history of SVT but states his last episode was probably about 2 years ago. He denies any chest pain or pressure. Denies any shortness of breath. DIAGNOSTICS: - EKG reveals sinus mechanism with no signs of acute ischemia. Telemetry t racings and paper chart reviewed revealing SVT - Laboratory data: WBC 5.8. Hemoglobin 11.8. Platelet count 161. - Current home cardiac medications include none REVIEW OF SYSTEMS: At the time of my exam: CONSTITUTIONAL: Denies fever or chills. HEENT: Denies blurred vision, vision changes, or eye pain. Denies hemoptysis CARDIOVASCULAR: Denies chest pain. Denies orthopnea. Denies PND. Denies pal pitations RESPIRATORY: Denies shortness of breath. GASTROINTESTINAL: Denies abdominal pain. Denies nausea or vomiting. HEMATOLOGIC: Denies bleeding disorders. GENITOURINARY: Denies any blood in urine. SKIN: Denies pruitis. Denies rash. PHYSICAL EXAM: VITAL SIGNS: Reviewed. GENERAL: Well-developed in no acute distress. HEENT: Head is normocephalic. Pupils are equal, round. Sclerae anicteric. Mucous membranes of the mouth are moist. Neck supple. No JVD or thyromegaly LUNGS: Respirations even and unlabored. Lungs essentially clear to auscultation bilaterally. HEART: Regular rate and rhythm. S1 and S2 heard. ABDOMEN: Soft. Nondistended. Nontender. EXTREMITIES: Normal range of motion. No clubbing or cyanosis. Peripheral pulses intact. No lower extremity edema NEUROLOGIC: Awake and alert. Oriented x 3. ASSESSMENT: Osteoarthritis, status post left total hip arthroplasty Paroxysmal SVT, converted to sinus mechanism with adenosine x 2 History of SVT PLAN: Obtain 2D echo to assess cardiac structure and function Begin metoprolol tartrate 25 mg twice a day Discontinue IV amiodarone Check TSH Continue telemetry monitoring Patient may be discharged home this afternoon from a cardiac standpoint pending echo results Consider ablation if patient continues to have episodes of SVT Patient to follow-up postdischarge in the office with Dr. Lindquist Nurse practitioner note has been reviewed by physician. Signing provider agrees with the documented findings, assessment, and plan of care documented by MEDICAL BILLING INSTRUCTOR as a scribe. Past Medical History Past Medical History: Osteoarthritis (OA) Additional Past Medical History / Comment(s): left hip pain, back pain History of Any Multi-Drug Resistant Organisms: None Reported Past Surgical History: No Surgical Hx Reported Additional Past Surgical History / Comment(s): fx hand repair as a teen, rt hip replaced Past Anesthesia/Blood Transfusion Reactions: No Reported Reaction Additional Past Anesthesia/Blood Transfusion Reaction / Comment(s): no blood tx/ hx Past Psychological History: No Psychological Hx Reported Smoking Status: Never smoker Past Alcohol Use History: Occasional Additional Past Alcohol Use History / Comment(s): weekends only <14/ week ( medical hx states pt drinks 4-5 days per week) Past Drug Use History: None Reported - Past Family History Mother Family Medical History: No Reported History Medications and Allergies Home Medications Medication Instructions Recorded Confirmed Type Otc Nsaid Combo Med 1 tab PO DIRECTED 05/31/24 05/31/24 History Unk Multi Vitamin 1 tab PO DAILY 05/31/24 05/31/24 History Aspirin 325 mg PO BID #60 tab 06/07/24 Rx HYDROcodone/APAP 7.5-325MG [[place] 1 - 2 tab PO Q6H PRN #32 tab 06/07/24 Rx 7.5-325] Sennosides [Senokot] 2 tab PO DAILY PRN #60 tablet 06/07/24 Rx Ketorolac [Toradol] 10 mg PO Q6HR #12 tab 06/08/24 Rx Metoprolol Tartrate [Lopressor] 25 mg PO BID #60 tab 06/08/24 Rx hydrOXYzine pamoate [Vistaril] 25 mg PO Q6H PRN #30 capsule 06/08/24 Rx Allergies Allergy/AdvReac Type Severity Reaction Status Date / Time No Known Allergies Allergy Verified 06/07/24 09:59 Physical Exam Vitals: Vital Signs Temp Pulse Resp BP Pulse Ox 06/08/24 08:26 72 18 100/64 97 06/08/24 04:40 68 17 108/73 97 06/07/24 23:57 72 17 104/69 95 06/07/24 20:45 98.3 F 84 17 111/74 94 L 06/07/24 18:45 98/67 06/07/24 18:29 96 18 105/71 96 06/07/24 17:47 97 125/79 94 L 06/07/24 17:42 178 H 114/77 96 06/07/24 17:36 170 H 106/70 96 06/07/24 17:22 96 06/07/24 17:14 185 H 115/75 92 L 06/07/24 16:32 80 128/79 93 L 06/07/24 16:17 78 140/83 94 L 06/07/24 16:02 80 133/85 97 06/07/24 15:47 78 137/86 95 06/07/24 15:32 91 150/101 93 L 06/07/24 15:17 79 131/80 92 L 06/07/24 15:02 67 125/79 06/07/24 14:47 71 155/105 92 L 06/07/24 14:32 69 117/79 94 L 06/07/24 13:30 73 14 112/67 94 L 06/07/24 13:15 71 14 111/68 94 L 06/07/24 13:00 71 14 110/65 94 L 06/07/24 12:51 97.8 F 86 14 116/70 94 L 06/07/24 10:45 75 16 126/92 97 Intake and Output 06/07/24 06/08/24 06/08/24 22:59 06:59 14:59 Output Total 150 Balance -150 Output: Urine 150 Other: Voiding Method Toilet # Voids 2 Weight 102 kg 104.1 kg Results 06/08/24 06:49 CBC 06/08/24 Range/Units 06:49 WBC 5.8 (3.8-10.6) k/uL RBC 4.05 L (4.30-5.90) m/uL Hgb 11.8 L (13.0-17.5) gm/dL Hct 37.2 L (39.0-53.0) % Plt Count 161 (150-450) k/uL Current Medications Generic Name Dose Route Start Last Admin Trade Name Freq PRN Reason Stop Dose Admin Hydrocodone Bitart/Acetaminophen 1 each 06/07/24 13:06 Hydrocodone/Apap 7.5-325mg 1 Each Tab PO 07/07/24 13:05 Q6H PRN Pain Scale 1 to 5 Hydrocodone Bitart/Acetaminophen 2 each 06/07/24 13:06 Hydrocodone/Apap 7.5-325mg 1 Each Tab PO 07/07/24 13:05 Q6H PRN Pain Scale 6 to 10 Aspirin 325 mg 06/07/24 21:00 06/08/24 08:27 Aspirin 325 Mg Tab PO 07/07/24 20:59 325 mg BID DOROTEO Administration Fentanyl Citrate 100 mcg 06/07/24 10:31 06/07/24 10:39 Fentanyl (Pf) 50 Mcg/Ml 2 Ml Amp IVP 07/07/24 10:30 100 mcg ONCE PRN Administration Severe Pain (Scale 7 to 10) Hydromorphone HCl 0.5 mg 06/07/24 13:04 Hydromorphone 0.5 Mg/0.5 Ml Syringe IVP 07/07/24 13:03 Q3HR PRN Pain Scale 4 to 6 Hydromorphone HCl 1 mg 06/07/24 13:04 06/08/24 08:27 Hydromorphone 2 Mg/Ml 1 Ml Syringe IVP 07/07/24 13:03 1 mg Q3HR PRN Administration Pain Scale 7 to 10 Hydromorphone HCl 0.25 mg 06/07/24 13:04 Hydromorphone 0.5 Mg/0.5 Ml Syringe IVP 07/07/24 13:03 Q3HR PRN Pain Scale 1 to 3 Lactated Ringer's 1,000 mls @ 20 mls/hr 06/07/24 07:01 06/08/24 06:32 Lactated Ringers IV 07/07/24 07:00 Not Given .Q24H DOROTEO Sodium Chloride 1,000 mls @ 70 mls/hr 06/07/24 13:15 06/08/24 04:37 Saline 0.9% IV 07/07/24 13:14 70 mls/hr .[id number] DOROTEO Administration Ketorolac Tromethamine 15 mg 06/08/24 07:08 Ketorolac 15 Mg/Ml 1 Ml Vial IVP 06/13/24 07:07 Q6HR PRN Pain Lidocaine HCl 0.1 ml 06/07/24 07:01 Lidocaine 1% (10mg/Ml) For Iv Start INTRADERMA 07/07/24 07:00 PER PROTOCOL PRN IV Start Magnesium Hydroxide 2,400 mg 06/07/24 13:04 Magnesium Hydroxide 2,400 Mg/30 Ml Cup PO 07/07/24 13:03 DAILY PRN Constipation Metoprolol Tartrate 25 mg 06/08/24 09:00 06/08/24 10:02 Metoprolol Tartrate 25 Mg Tab PO 25 mg BID DOROTEO Administration Naloxone HCl 0.2 mg 06/07/24 13:04 Naloxone 0.4 Mg/Ml 1 Ml Vial IV 07/07/24 13:03 Q2M PRN Opioid Reversal Ondansetron HCl 4 mg 06/07/24 13:04 Ondansetron 4 Mg/2 Ml Vial IVP 07/07/24 13:03 Q8H PRN Nausea And Vomiting Senna/Docusate Sodium 2 each 06/07/24 21:00 06/07/24 20:48 Sennosides-Docusate Sodium 1 Each Tab PO 07/07/24 20:59 2 each HS DOROTEO Administration Trazodone HCl 50 mg 06/07/24 22:00 06/07/24 22:06 Trazodone Hcl 50 Mg Tab PO 50 mg HS PRN Administration Insomnia Intake and Output 06/07/24 06/08/24 06/08/24 22:59 06:59 14:59 Output Total 150 Balance -150 Output: Urine 150 Other: Voiding Method Toilet # Voids 2 Weight 102 kg 104.1 kg 06/08/24 06:49
[2024-06-08 10:37] LABS: African American GFR (CKD) >90 (>60 ml/min/1.73 sqM); Anion Gap 5 mmol/L; Blood Urea Nitrogen 9 mg/dL (9-20); Carbon Dioxide 34 mmol/L (22-30); Chloride 98 mmol/L (98-107); Magnesium 1.8 mg/dL (1.6-2.3); Non-African American GFR(CKD) >90 (>60 ml/min/1.73 sqM); Potassium 4.3 mmol/L (3.5-5.1); Sodium 137 mmol/L (137-145)
[2024-06-08 10:50] LABS: Calcium 6.4 mg/dL (8.4-10.2)
--- NOTE | 2024-06-08 10:58 | P.DS ---
Providers Expected date of discharge: 06/08/24 Attending physician: Capo Dodge Consults: 06/07/24 13:04 Consult Physician Routine Consulting Provider: Dre Lester Consult Reason/Comments: medical management Do you want consulting provider notified?: Yes 06/07/24 17:22 Consult Physician Urgent Consulting Provider: Patrice Lindquist Consult Reason/Comments: SVT Do you want consulting provider notified?: Yes Primary care physician: Dre Lester - Discharge Diagnosis(es) (1) Osteoarthritis of left hip Current Visit: Yes Status: Acute (2) S/P total hip arthroplasty Current Visit: No Status: Acute Hospital Course: This is a 54-year-old male with known history of degenerative arthritis of the left hip. The patient presented for evaluation as an outpatient. After discussion and consideration patient elects to proceed with total hip arthropla sty. The patient is seen preoperatively by Dr. Dodge and medically cleared for surgery by their primary care physician. Patient is admitted to [facility] on 06/07/2024 for total hip arthr oplasty. The procedure is performed without complication or sequelae. The patient is doing well postoperatively. Patient has been monitored and evaluated by cardiology for an episode of SVT during this admission. Labs and vital signs are stable on day of discharge. On day of discharge patient's hip incision is healing well. There is minimal erythema. There is no drainage noted at this time. There is minimal soft tissue swelling to the hip and thigh. Patient has full foot and ankle motion without difficulty or pain. Calf is soft and nontender to palpation. Neurovascular status to the left lower extremity is intact. Patient is discharged home in good condition. Patient please see med rec for accurate list of home medications. Plan - Discharge Summary Discharge Rx Participant: No New Discharge Prescriptions: New Aspirin 325 mg PO BID #60 tab HYDROcodone/APAP 7.5-325MG [[place] 7.5-325] 1 - 2 tab PO Q6H PRN #32 tab PRN Reason: Pain Ketorolac [Toradol] 10 mg PO Q6HR #12 tab Sennosides [Senokot] 2 tab PO DAILY PRN #60 tablet PRN Reason: Constipation hydrOXYzine pamoate [Vistaril] 25 mg PO Q6H PRN #30 capsule PRN Reason: Pain Metoprolol Tartrate [Lopressor] 25 mg PO BID #60 tab No Action Unk Multi Vitamin 1 tab PO DAILY Otc Nsaid Combo Med 1 tab PO DIRECTED Discharge Medication List Otc Nsaid Combo Med 1 tab PO DIRECTED 05/31/24 [History] Unk Multi Vitamin 1 tab PO DAILY 05/31/24 [History] Aspirin 325 mg PO BID #60 tab 06/07/24 [Rx] HYDROcodone/APAP 7.5-325MG [[place] 7.5-325] 1 - 2 tab PO Q6H PRN #32 tab 06/07/24 [Rx] Sennosides [Senokot] 2 tab PO DAILY PRN #60 tablet 06/07/24 [Rx] Ketorolac [Toradol] 10 mg PO Q6HR #12 tab 06/08/24 [Rx] Metoprolol Tartrate [Lopressor] 25 mg PO BID #60 tab 06/08/24 [Rx] hydrOXYzine pamoate [Vistaril] 25 mg PO Q6H PRN #30 capsule 06/08/24 [Rx] Follow up Appointment(s)/Referral(s): Patrice Lindquist MD [STAFF PHYSICIAN] - 1 Week Capo Dodge DO [Doctor of Osteopathic Medicine] - 2 Weeks Activity/Diet/Wound Care/Special Instructions: Weightbearing as tolerated with walker. Leave dressing intact. Dressing may be removed by home care nurse or by patient in 7 days. Then change dressing twice daily until follow up. May shower with initial dressing intact and after removal. If dressing become saturated, please remove. Please take aspirin 325mg twice daily for 30 days to prevent blood clots. Recommend use of compression stockings daily until follow up to help prevent swelling and blood clots. May remove at night before sleeping. Please follow[facility]up with [facility] in 2 weeks and call with any questions or concerns, . Discharge Disposition: HOME WITH HOME HEALTH SERVICES
[2024-06-08] MEDS ORDERED: LORazepam 2 MG/ML INJ IV PRN ×4 (12:09)
--- NOTE | 2024-06-08 15:03 | P.CONS ---
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 Reports not new, had this in the past, uses vagal maneuvers and it spontaneously resolves. Echo ordered. positive pain, pain management adjusted, transitioning to oral. Ambulating, tolerating exertion well. Denies chest pain, palpitations or shortness of breath. Passing flatus. Calcium 6.4, ionized calcium ordered. Review of Systems ROS Statement: Those systems with pertinent positive or pertinent negative responses have been documented in the HPI. ROS Other: All systems not noted in ROS Statement are negative. Past Medical History Past Medical History: Osteoarthritis (OA) Additional Past Medical History / Comment(s): left hip pain, back pain History of Any Multi-Drug Resistant Organisms: None Reported Past Surgical History: No Surgical Hx Reported Additional Past Surgical History / Comment(s): fx hand repair as a teen, rt hip replaced Past Anesthesia/Blood Transfusion Reactions: No Reported Reaction Additional Past Anesthesia/Blood Transfusion Reaction / Comm: no blood tx/hx Past Psychological History: No Psychological Hx Reported Smoking Status: Never smoker Past Alcohol Use History: Occasional Additional Past Alcohol Use History / Comment(s): weekends only <14/ week ( medical hx states pt drinks 4-5 days per week) Past Drug Use History: None Reported - Past Family History Mother Family Medical History: No Reported History Medications and Allergies Home Medications Medication Instructions Recorded Confirmed Type Otc Nsaid Combo Med 1 tab PO DIRECTED 05/31/24 05/31/24 History Unk Multi Vitamin 1 tab PO DAILY 05/31/24 05/31/24 History Aspirin 325 mg PO BID #60 tab 06/07/24 Rx HYDROcodone/APAP 7.5-325MG [[place] 1 - 2 tab PO Q6H PRN #32 tab 06/07/24 Rx 7.5-325] Sennosides [Senokot] 2 tab PO DAILY PRN #60 tablet 06/07/24 Rx Ketorolac [Toradol] 10 mg PO Q6HR #12 tab 06/08/24 Rx Metoprolol Tartrate [Lopressor] 25 mg PO BID #60 tab 06/08/24 Rx hydrOXYzine pamoate [Vistaril] 25 mg PO Q6H PRN #30 capsule 06/08/24 Rx Allergies Allergy/AdvReac Type Severity Reaction Status Date / Time No Known Allergies Allergy Verified 06/07/24 09:59 Physical Exam Vitals: Vital Signs Temp Pulse Resp BP Pulse Ox 06/08/24 08:26 72 18 100/64 97 06/08/24 04:40 68 17 108/73 97 06/07/24 23:57 72 17 104/69 95 06/07/24 20:45 98.3 F 84 17 111/74 94 L 06/07/24 18:45 98/67 06/07/24 18:29 96 18 105/71 96 06/07/24 17:47 97 125/79 94 L 06/07/24 17:42 178 H 114/77 96 06/07/24 17:36 170 H 106/70 96 06/07/24 17:22 96 06/07/24 17:14 185 H 115/75 92 L 06/07/24 16:32 80 128/79 93 L 06/07/24 16:17 78 140/83 94 L 06/07/24 16:02 80 133/85 97 06/07/24 15:47 78 137/86 95 06/07/24 15:32 91 150/101 93 L 06/07/24 15:17 79 131/80 92 L 06/07/24 15:02 67 125/79 06/07/24 14:47 71 155/105 92 L 06/07/24 14:32 69 117/79 94 L 06/07/24 13:30 73 14 112/67 94 L 06/07/24 13:15 71 14 111/68 94 L 06/07/24 13:00 71 14 110/65 94 L 06/07/24 12:51 97.8 F 86 14 116/70 94 L 06/07/24 10:45 75 16 126/92 97 06/07/24 10:08 97.7 F 84 16 141/67 97 Intake and Output 06/07/24 06/08/24 06/08/24 22:59 06:59 14:59 Output Total 150 Balance -150 Output: Urine 150 Other: Voiding Method Toilet # Voids 2 Weight 102 kg 104.1 kg PHYSICAL EXAM: VITAL SIGNS: [As above] GENERAL: Sitting up in chair, no acute distress HEENT: Atraumatic, normocephalic, Conjunctivae normal. eyes normal. NECK: Supple, No JVD. No thyroid enlargement. No LNs CARDIOVASCULAR: S1, S2 regular. No murmur RESPIRATION: Nonlabored, Breath sounds diminished in the bases. No rhonchi or crackles. No bronchial breathing. ABDOMEN: Soft, nondistended, nontender . No guarding. no masses palpable. No ascites, No hepatosplenomegaly.Bowel sounds heard. EXTREMITIES: Left hip dressing clean dry and intact, minimal edema, no calf tenderness, positive DP pulses. PSYCHIATRY: Alert and oriented X3, mood and affect normal. NERVOUS SYSTEM: Cranial N 2-12 grossly normal. No focal deficits. Strength and sensation grossly intact. Skin: Warm and dry, no rash Results CBC & Chem 7: 06/08/24 06:49 06/08/24 06:41 Labs: Abnormal Lab Results - Last 24 Hours (Table) 06/07/24 06/08/24 Range/Units 17:14 06:49 RBC 4.05 L (4.30-5.90) m/uL Hgb 11.8 L (13.0-17.5) gm/dL Hct 37.2 L (39.0-53.0) % POC Glucose (mg/dL) 212 H (70-110) mg/dL Assessment and Plan Assessment: Paroxysmal SVT, postoperative, in a patient with history of SVT converted to sinus rhythm after second adenosine. 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 Morbid obesity, BMI 33 Plan: Continue on current medication regime as ,monitoring and symptomatic treatment. Echo pending .antiarrhythmics as per cardiology. Pain management, DVT prophylaxis as per primary. PPI ordered for GI prophylaxis. Aggressive pulmonary toileting with incentive spirometer reinforced. PT/OT. Ionized calcium 3.6, 1 g calcium gluconate ordered. Medically cleared for discharge. Follow-up with PCP in 1 week. thank you for the consult. The impression and plan of care has been dictated as directed. : I performed a history and examination of this patient, discussed the same with the dictator. I agree with the dictator's note ,documented as a scribe. Any additional findings or plans will be noted.
[2024-06-08] MEDS: HYDROcodone/APAP 7.5-325MG 1 EACH TAB PO PRN (15:08)
[2024-06-08] MEDS: CALCIUM GLUCONATE IN NACL 1 GM in SALINE 1 100ML.BAG IVPB ONE (15:08)
[2024-06-08] MEDS: KETOROLAC 15 MG/ML 1 ML VIAL IVP PRN (16:16)
[2024-06-08] MEDS: MAGNESIUM SULFATE-D5W PMX 1 GM in DEXTROSE/WATER 1 100ML.BAG IVPB ONE (16:17)
[2024-06-08] MEDS: FOLIC ACID 1 MG TAB PO SCH (18:09)
[2024-06-09] MEDS: MAGNESIUM HYDROXIDE 2,400 MG/30 ML CUP PO PRN (00:12)
[2024-06-09] MEDS: MULTIVITAMINS, THERA 1 EACH TAB PO SCH (08:44)
--- NOTE | 2024-06-09 08:46 | P.PN ---
Subjective Progress Note Date: 06/09/24 No acute events overnight. Patient is doing well this morning. The pain in their hip is mild. They have walked to the bathroom with a walker and assistance. They deny chest pain or shortness of breath. Patient was supposed to have an echocardiogram done on 06/08/2024 and if cleared by cardiology discharged home, but it was not obtained yesterday, it was obtained this a.m. 06/09/2024. Objective - Vital Signs Vital signs: Vital Signs Temp 98.0 F 06/09/24 04:00 Pulse 55 L 06/09/24 04:00 Resp 16 06/09/24 04:00 BP 104/58 06/09/24 04:00 Pulse Ox 97 06/09/24 04:00 FiO2 Intake & Output 06/08/24 06/09/24 06/09/24 18:59 06:59 18:59 Intake Total 118 Balance 118 Weight 105.3 kg Intake: Oral 118 Other: Voiding Method Toilet Toilet # Voids 2 - Exam Patient was examined at bedside. Patient is resting comfortably in bed. No apparent distress. They are awake, alert and able to answer questions. On inspection the surgical hip dressing is intact, there is no drainage or strikethrough. The skin surrounding the dressing is free of erythema. There is mild swelling in the operative thigh. Operative femoral nerve function is intact. The patient is able to actively plantarflex and dorsiflex their operative ankle and toes. Their operative foot appears well perfused with capillary refill under 2 seconds. - Labs CBC & Chem 7: 06/08/24 06:49 06/08/24 06:41 Labs: Abnormal Lab Results - Last 24 Hours (Table) 06/08/24 06/08/24 Range/Units 06:41 11:17 Carbon Dioxide 34 H (22-30) mmol/L Glucose 104 H (74-99) mg/dL Calcium 6.4 L* (8.4-10.2) mg/dL Ionized Calcium Jeanette 3.6 L (4.5-5.3) mg/dL Assessment and Plan Assessment: (1) Osteoarthritis of left hip (2) S/P total hip arthroplasty Plan: Continue routine postop care and pain control. Continue anticoagulation with aspirin. Weightbearing as tolerated with a walker. Leave dressing in place for 7 days. Appreciate input from internal medicine. Patient was supposed to have an echocardiogram done on 06/08/2024 and if cleared by cardiology, discharged home, but it was not obtained yesterday, it was obtained this a.m. 06/09/2024. If cleared by cardiology, patient has been cleared by internal medicine, patient is cleared from an orthopedic standpoint, and can discharged home this afterno on.
[2024-06-09 09:49] VITALS: BP 108/67; PULSE 75; RESP 18; TEMP 99.1
--- NOTE | 2024-06-09 11:07 | CA ---
Transthoracic Echo Report Name: Ahmet Gorman Age: 54 Gender: M : 1970 Exam Date: 06/09/2024 08:06 Exam Location: [facility] Ht (in): 70 Wt (lb): 229 Ordering Physician: Dolores Isidro Attending/Referring Phys: [id number], Sanna Welder Fabricator Lesley Machuca RDCS Procedure CPT: Indications: LV function, SVT Cardiac Hx: Technical Quality: Technically difficult study Contrast 1: Definity Total Dose (mL): 2 Contrast 2: Total Dose (mL): MEASUREMENTS (Male / Female) Normal Values 2D ECHO LV Diastolic Diameter PLAX 5.2 cm 4.2 - 5.9 / 3.9 - 5.3 cm LV Systolic Diameter PLAX 3.3 cm IVS Diastolic Thickness 1.0 cm 0.6 - 1.0 / 0.6 - 0.9 cm LVPW Diastolic Thickness 1.1 cm 0.6 - 1.0 / 0.6 - 0.9 cm LV Relative Wall Thickness 0.4 LVOT Diameter 2.6 cm LV Diastolic Volume MOD BP 137.6 cm??? 67 - 155 / 56 - 104 cm??? LV Systolic Volume MOD BP 51.5 cm??? 22 - 58 / 19 - 49 cm??? LV Ejection Fraction MOD BP 62.5 % >= 55 % LV Cardiac Index MOD BP 2809.1 cm???/min???m??? LV Diastolic Volume MOD 4C 124.2 cm??? LV Systolic Volume MOD 4C 61.9 cm??? LV Ejection Fraction MOD 4C 50.1 % LV Cardiac Index MOD 4C 2031.8 cm???/min???m??? LV Diastolic Length 4C 8.7 cm LV Systolic Length 4C 7.5 cm LV Diastolic Volume MOD 2C 145.4 cm??? LV Systolic Volume MOD 2C 37.6 cm??? LV Ejection Fraction MOD 2C 74.1 % LV Cardiac Index MOD 2C 3517.2 cm???/min???m??? LV Diastolic Length 2C 9.2 cm LV Systolic Length 2C 6.5 cm LA Volume 53.3 cm??? 18 - 58 / 22 - 52 cm??? LA Volume Index 23.2 cm???/m??? 16 - 28 cm???/m??? Ascending Aorta Diameter 3.5 cm DOPPLER AV Peak Velocity 132.4 cm/s AV Peak Gradient 7.0 mmHg AV Mean Velocity 86.5 cm/s AV Mean Gradient 3.4 mmHg AV Velocity Time Integral 22.4 cm LVOT Peak Velocity 99.3 cm/s LVOT Peak Gradient 3.9 mmHg LVOT Velocity Time Integral 19.2 cm LVOT Stroke Volume 104.1 cm??? LVOT Stroke Volume Index 47.1 ml/m??? LVOT Cardiac Index 3397.2 cm???/min???m??? AV Area Cont Eq vti 4.7 cm??? AV Area Cont Eq pk 4.1 cm??? MV Area PHT 4.3 cm??? Mitral E Point Velocity 61.5 cm/s Mitral A Point Velocity 76.1 cm/s Mitral E to A Ratio 0.8 MV Deceleration Time 178.2 ms PV Peak Velocity 87.8 cm/s PV Peak Gradient 3.1 mmHg FINDINGS Left Ventricle Left ventricular ejection fraction is estimated at 50-55 %. Left ventricular cavity size normal. Left ventricular wall thickness normal. No obvious regional wall motion abnormalities. Right Ventricle Normal right ventricular size and function. Unable to estimate the right ventricular systolic pressure. Right Atrium Right atrium not well visualized. Left Atrium Normal left atrial size. Mitral Valve Structurally normal mitral valve. No mitral stenosis, regurgitation or prolapse. Aortic Valve Trileaflet aortic valve. No aortic valve stenosis or regurgitation. Tricuspid Valve Structurally normal tricuspid valve. No tricuspid stenosis, regurgitation or prolapse. Pulmonic Valve Pulmonic valve not well visualized. No pulmonic stenosis. Trace pulmonic regurgitation. Pericardium No pericardial effusion. Aorta Normal size aortic root and proximal ascending aorta. CONCLUSIONS Normal LV function Previewed by: Dr. Julito Quiñones MD (Electronically Signed) Final Date: 09 June 2024 11:06
--- NOTE | 2024-06-09 12:20 | P.PN ---
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 Reports not new, had this in the past, uses vagal maneuvers and it spontaneously resolves. Echo ordered. positive pain, pain management adjusted, transitioning to oral. Ambulating, tolerating exertion well. Denies chest pain, palpitations or shortness of breath. Passing flatus. Calcium 6.4, ionized calcium ordered. 06/09/2024 echo pending. No further SVT reported per telemetry .denies chest pain, palpitations or shortness of breath. Maintaining O2 sats in the mid to high 90s on room air. Pain controlled. Tmax 99.1, normal WBC. Objective - Vital Signs Vital signs: Vital Signs Temp 99.1 F 06/09/24 08:00 Pulse 75 06/09/24 08:00 Resp 18 06/09/24 08:00 BP 108/67 06/09/24 08:00 Pulse Ox 95 06/09/24 08:00 FiO2 Intake & Output 06/08/24 06/09/24 06/09/24 18:59 06:59 18:59 Intake Total 118 444 Balance 118 444 Weight 105.3 kg Intake: Oral 118 444 Other: Voiding Method Toilet Toilet # Voids 2 - Exam PHYSICAL EXAM: VITAL SIGNS: [As above] GENERAL: Alert and oriented x 3, sitting up in chair, no acute distress HEENT: Atraumatic, normocephalic, Conjunctivae normal. eyes normal. NECK: Supple, No JVD. CARDIOVASCULAR: S1, S2 regular. No murmur RESPIRATION: Nonlabored, Breath sounds diminished in the bases. ABDOMEN: Soft, nondistended, nontender . No guarding. no masses palpable. No ascites, No hepatosplenomegaly.Bowel sounds heard. EXTREMITIES: Left hip dressing clean dry and intact, minimal edema, no calf tenderness, positive DP pulses. NERVOUS SYSTEM: Cranial N 2-12 grossly normal. No focal deficits. Strength and sensation grossly intact. Skin: Warm and dry, no rash - Labs CBC & Chem 7: 06/08/24 06:49 06/08/24 06:41 Assessment and Plan Assessment: Paroxysmal SVT, postoperative, in a patient with history of SVT converted to sinus rhythm after second adenosine. 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 Morbid obesity, BMI 33 Plan: Continue on current medication regime as ,monitoring and symptomatic treatment. Echo reporting normal LV function-EF 50 to 55% with no obvious regional wall motion abnormalities .Antiarrhythmics as per cardiology. Pain management, DVT prophylaxis as per primary. Maintain aggressive pulmonary toileting with incentive spirometer reinforced. Medically cleared for discharge. Follow-up with PCP in 1 week. thank you for the consult. The impression and plan of care has been dictated as directed. : I performed a history and examination of this patient, discussed the same with the dictator. I agree with the dictator's note ,documented as a scribe. Any additional findings or plans will be noted.
--- NOTE | 2024-06-09 13:48 | P.PN ---
Subjective HISTORY OF PRESENT ILLNESS: This is a 54-year-old male with a past medical history significant for osteoarthritis and SVT. Patient does not follow with a crossbow maker. We have been asked to see the patient in consultation for SVT. Patient examined at the bedside. Status post left total hip arthroplasty. Postop day #1. Postoperatively, the patient went into SVT. He was given adenosine x 2 with conversion to sinus mechanism. He reports having palpitations at that time. He is maintaining sinus mechanism this morning. He does report having a history of SVT but states his last episode was probably about 2 years ago. He denies any chest pain or pressure. Denies any shortness of breath. DIAGNOSTICS: - EKG reveals sinus mechanism with no signs of acute ischemia. Telemetry tracings and paper chart reviewed revealing SVT - Laboratory data: WBC 5.8. Hemoglobin 11.8. Platelet count 161. - Current home cardiac medications include none 06/09/2024 Patient examined this morning at the bedside. Patient currently denies chest pain or pressure. He denies shortness of breath. Vital signs are stable. No further episodes of SVT. Echocardiogram completed revealing ejection fraction 50 to 55% with no significant valvular abnormalities. PHYSICAL EXAM: VITAL SIGNS: Reviewed. GENERAL: Well-developed in no acute distress. HEENT: Head is normocephalic. Pupils are equal, round. Sclerae anicteric. Mucous membranes of the mouth are moist. Neck supple. No JVD or thyromegaly LUNGS: Respirations even and unlabored. Lungs essentially clear to auscultation bilaterally. HEART: Regular rate and rhythm. S1 and S2 heard. ABDOMEN: Soft. Nondistended. Nontender. EXTREMITIES: Normal range of motion. No clubbing or cyanosis. Peripheral pulses intact. No lower extremity edema NEUROLOGIC: Awake and alert. Oriented x 3. ASSESSMENT: Osteoarthritis, status post left total hip arthroplasty Paroxysmal SVT, converted to sinus mechanism with adenosine x 2 History of SVT PLAN: Continue metoprolol Patient is currently stable for discharge today from a cardiac standpoint Consider ablation if patient continues to have episodes of SVT Patient to follow-up postdischarge in the office with Dr. Lindquist Nurse practitioner note has been reviewed by physician. Signing provider agrees with the documented findings, assessment, and plan of care documented by PHILANTHROPY OFFICER as a scribe. Objective - Vital Signs Vital signs: Vital Signs Temp 99.1 F 06/09/24 08:00 Pulse 75 06/09/24 08:00 Resp 18 06/09/24 08:00 BP 108/67 06/09/24 08:00 Pulse Ox 95 06/09/24 08:00 FiO2 Intake & Output 06/08/24 06/09/24 06/09/24 18:59 06:59 18:59 Intake Total 118 562 Balance 118 562 Weight 105.3 kg Intake: Oral 118 562 Other: Voiding Method Toilet Toilet # Voids 2 - Labs CBC & Chem 7: 06/08/24 06:49 06/08/24 06:41
== END 2024-06-09 12:58 | disposition home or self-care (01) | DRG 470 ==
LOC: OR 09:31 → 3SCARD 09:32 → OR 09:32 → 4SSUR 13:00 → 3SCARD 18:17
PROVIDERS: ADMIT Orthopaedic Surgery; ATTEND Orthopaedic Surgery
PROC: 0SRB06A Replacement of Left Hip Joint with Oxidized Zirconium on Polyethylene Synthetic Substitute, Uncemented, Open Approach (ICD-10-PCS; principal; 2024-06-07 11:15)
DX: M16.12 Unilateral primary osteoarthritis, left hip (principal); I47.19 Other supraventricular tachycardia; Z96.641 Presence of right artificial hip joint; E66.01 Morbid (severe) obesity due to excess calories; I10 Essential (primary) hypertension; Z79.82 Long term (current) use of aspirin; Z79.899 Other long term (current) drug therapy; Z68.33 Body mass index [BMI] 33.0-33.9, adult
CPT/HCPCS: 64447; 73501; 80048; 82330; 83735; 84443; 85025; 93005; 93306